=== PATIENT | female | born 1995 | race African-American/Black ===

== ENCOUNTER → 2017-03-04 | Outpatient (REF) | payer OTHER | LOC: M SFHCLERA 17:51 | PROVIDERS: ATTEND Physician Assistant | DX: J02.9 Acute pharyngitis, unspecified (principal); N89.8 Other specified noninflammatory disorders of vagina | CPT/HCPCS: 87070; 87491; 87591; G0463 ==

== ENCOUNTER 2018-01-29 20:26 | Emergency (ER) | payer OTHER, SELFPAY ==
[2018-01-29] MEDS: diphenhydrAMINE 50 MG CAP PO (21:31)
[2018-01-29] MEDS: predniSONE 20 MG TAB PO (21:31)
== END 2018-01-29 21:43 | disposition home or self-care (01) ==
LOC: M ED 20:26
DX: T78.40XA Allergy, unspecified, initial encounter (principal); L29.9 Pruritus, unspecified; L50.9 Urticaria, unspecified; X58.XXXA Exposure to other specified factors, initial encounter; Y92.89 Other specified places as the place of occurrence of the external cause
CPT/HCPCS: 99283

== ENCOUNTER → 2018-02-23 | Outpatient (CLI) | payer OTHER ==
[~2018-02-23] MED LIST: E-Z-GAS II EFFERVESCENT PACKET (SODIUM BICARB./CITRIC ACID/SIMETHICONE) As Ordered; E-Z-HD 98% w/w 340GM SUSP BTL As Ordered; E-Z-PAQUE 96% w/w SUSP 176GM BTL As Ordered
== END ==
LOC: M RAD 08:07
DX: K21.9 Gastro-esophageal reflux disease without esophagitis (principal)

== ENCOUNTER → 2018-03-03 | Outpatient (CLI) | payer OTHER | LOC: M RAD 15:07 | DX: Z32.01 Encounter for pregnancy test, result positive (principal); Z36.89 Encounter for other specified antenatal screening; Z3A.01 Less than 8 weeks gestation of pregnancy | CPT/HCPCS: 76801 ==

== ENCOUNTER → 2018-06-11 | Outpatient (CLI) | payer OTHER ==
[~2018-06-11] MED LIST changes: +BENA25CA4 PO; +CONRAY-43 43% 50ML VIAL (Q9960) As Ordered ONE; -E-Z-GAS II EFFERVESCENT PACKET (SODIUM BICARB./CITRIC ACID/SIMETHICONE) As Ordered; -E-Z-HD 98% w/w 340GM SUSP BTL As Ordered; -E-Z-PAQUE 96% w/w SUSP 176GM BTL As Ordered; +PRED20TA PO; +PROHANCE 279.3MG/ML 5ML VIAL (A9576) As Ordered ONE
--- NOTE | 2018-06-11 10:27 | REP ---
FLUOROSCOPIC GUIDED LEFT HIP ARTHROGRAM INJECTION: 06/11/2018. Clinical history: Chronic left hip pain. Evaluate the labrum. Technique: Procedure described in patient with potential diagnostic benefits of arthrogram augmented MRI which was including bleeding, infection, pain and diagnostic procedure. Informed consent was obtained. Formal time-out procedures were followed. With the patient supine, the skin was marked of the femoral neck on that left side and Chloraprep scrub used for antiseptic. Sterile field applied and then 4 ml 1% lidocaine with 25 gauge needle used for local anesthesia. Thereafter 22 gauge needle was placed through the numb area into the hip position confirmed within the joint by injection of 0.75 ml of Conray 43. Thereafter mixture of 20 ml normal saline and 0.15 ml of ProHance was injected for a total of 11 ml and seen to dilute the intra-articular contrast. She tolerated all of this well. On completion examination the patient was sent to the MR suite by chair to complete her examination. Fluoroscopy time: 0.4 minutes. Electronically Signed by Checo Michaud MD 06/11/2018 07:47 P
--- NOTE | 2018-06-11 15:13 | REP ---
MRI LEFT HIP WITHOUT AND WITH CONTRAST ARTHROGRAM: 06/11/2018. Clinical history: Left hip pain, evaluate for labral tear or other. Technique: Coronal whole pelvic T1 and STIR images with small field of view fat suppressed T2 coronal, sagittal and axial images followed by gadolinium arthrogram by myself and T1 fat suppressed coronal, sagittal and axial images. Findings: No comparison study provided. The whole pelvic marrow images show the marrow signal of L5, sacrum, iliac bones, ischia, hips and acetabuli to be unremarkable. There is no hip joint effusion. I see no trochanteric tendinobursitis. There are a few small iliac nodes bilaterally, not felt to be pathologic sized. There is evidence for a trochanteric tendinobursitis about the greater trochanter on both sides involving the gluteus medius. No definite fluid collection, but edema and increased signal in the tendon and adjacent. Pelvic, hip and buttocks musculature symmetric and grossly normal. In the gadolinium arthrogram there is no evidence of a loose body. Some undermining of the superior labrum on the arthrogram and a small paralabral sulcus on both sagittal and coronal images. Unrelated to the chief complaint, there is a T1 hyperintense and T2 STIR hypointense lesion in the pelvis I saw it as slightly hyperintense though subcutaneous fat. It measures at 10.8 x 8.4 x 5.6 cm. It has some dark signal T1 focus within that may be a calcification or blood. This has been seen in part on a first trimester OB ultrasound 03/03/2018. Impression: 1. No bone bruise, fracture, AVN or other acute bony finding. 2. Findings suggest a superior labral tear and a paralabral sulcus. 3. Bilateral mild trochanteric tendinobursitis. 4. Complex mass in the pelvis seen on pelvic ultrasound during a first trimester OB exam 03/03/2018. The differential diagnosis given the signal pattern suggests a dermoid lesion in that the lesion shows fat that suppresses signal significantly with STIR although not as much on the T1 and T2 sequences. [employer] consultation and followup are strongly recommended. Electronically Signed by Checo Michaud MD 06/11/2018 07:54 P
== END ==
LOC: M RADPRO 06:25
PROVIDERS: ATTEND General Practice
DX: M70.62 Trochanteric bursitis, left hip (principal); R19.09 Other intra-abdominal and pelvic swelling, mass and lump; M25.552 Pain in left hip
CPT/HCPCS: 27093; 73723; 77002; A9576; Q9960

== ENCOUNTER 2018-09-19 04:04 | Emergency (ER) | payer OTHER ==
[~2018-09-19] VITALS: Ht 160 cm; Wt 70.5 kg
[~2018-09-19 04:04] MED LIST changes: -CONRAY-43 43% 50ML VIAL (Q9960) As Ordered ONE; -PROHANCE 279.3MG/ML 5ML VIAL (A9576) As Ordered ONE
[2018-09-19 04:51] LABS: BASO % 0.2 % (0.0-1.0); EOS # 0.1 10^3/uL (0.0-0.50); EOS % 0.8 % (0.0-3.0); HEMATOCRIT 37.2 % (36.0-47.0); HEMOGLOBIN 12.8 g/dl (12.0-15.5); LYMPH # 2.1 10^3/uL (1.5-6.5); LYMPH % 14.7 % (24.0-44.0); MEAN CORPUSCULAR HEMOGLOBIN 24.6 pg (27.0-33.0); MEAN CORPUSCULAR HGB CONC 34.4 g/dl (32.0-36.5); MEAN CORPUSCULAR VOLUME 71.5 fl (80.0-96.0); MONO # 0.7 10^3/uL (0.0-0.8); NEUTROPHILS # 11.4 10^3/uL (1.8-7.7); PLATELET COUNT, AUTOMATED 337 10^3/uL (150-450); WHITE BLOOD COUNT 14.4 10^3/uL (4.0-10.0)
[2018-09-19 05:13] LABS: HCG, SERUM QUALITATIVE NEGATIVE (NEGATIVE)
[2018-09-19 05:20] LABS: ALBUMIN 3.6 GM/DL (3.2-5.2); ALT/SGPT 13 U/L (12-78); BILIRUBIN,DIRECT 0.2 MG/DL (0.0-0.2); BILIRUBIN,TOTAL 0.8 MG/DL (0.2-1.0); BLOOD UREA NITROGEN 8 MG/DL (7-18); CALCIUM LEVEL 8.8 MG/DL (8.5-10.1); CARBON DIOXIDE LEVEL 24 MEQ/L (21-32); CHLORIDE LEVEL 108 MEQ/L (98-107); CREATININE FOR GFR 0.67 MG/DL (0.55-1.30); GLOMERULAR FILTRATION RATE > 60.0 (>60); GLUCOSE, FASTING 102 MG/DL (70-100); LIPASE 118 U/L (73-393); POTASSIUM SERUM 3.8 MEQ/L (3.5-5.1); SODIUM LEVEL 140 MEQ/L (136-145); TOTAL PROTEIN 7.2 GM/DL (6.4-8.2)
[2018-09-19] MEDS ORDERED: KETOROLAC 30 MG/ML VIAL (J1885) IV ONE (06:45)
[2018-09-19] MEDS ORDERED: NS 1,000 ML IV ONE (06:45)
[2018-09-19] MEDS ORDERED: ISOVUE-370 76% 100ML VIAL (Q9967) As Ordered ONE (07:33)
--- NOTE | 2018-09-19 08:49 | REP ---
Clinical: Lower abdominal pain with leukocytosis. Technique: Axial contrast enhanced images from the lung bases to the pubic symphysis with coronal and sagittal re-formations using 100 ml Isovue 370 intravenous contrast material. Comparison: None. Findings: The uterus appears heterogeneous and somewhat ill-defined with surrounding pelvic fluid. The adnexa are poorly identified and there is a fluid collection in the deep right anterior pelvic space as well as a complex cystic area in the posterior cul-de-sac which measures greater than 7 cm maximal diameter. These findings are limited in further evaluation due to the lack of oral contrast to delineate the surrounding bowel as well as differentiating from the bladder. Correlation with pelvic ultrasound is recommended and findings are concerning for pelvic inflammatory disease with fluid and possible abscesses. Liver, spleen, pancreas, gallbladder, bilateral adrenal glands and kidneys are relatively normal. Scarring and possible cyst along the posterior aspect of the left kidney suggested. The enteric system is without obstruction or definite acute inflammatory process. Portions of a normal appendix are identified in the right lower quadrant. No free air. No obvious adenopathy. Abdominal aorta and vasculature appear normal. Musculoskeletal structures are intact. Impression: Detailed findings as described above suggest pelvic inflammatory disease and possible complex cystic changes to the adnexa versus abscesses. Correlation with physical examination and pelvic ultrasound may be warranted. Electronically Signed by Tenzin Moran MD 09/19/2018 08:41 A
--- NOTE | 2018-09-19 10:15 | REP ---
Clinical: Pelvic cyst. Technique: Transabdominal pelvic ultrasound followed by transvaginal examination for better evaluation of the endometrium and adnexa with color Doppler evaluation of the ovaries. Findings: Enlarged heterogeneous uterus measures 9.4 x 5.7 x 8.5 cm. Endometrial complex measures 4.9 mm thickness. Right ovary measures approximately 7.4 x 3.9 x 5.9 cm with multiple complex cystic changes - the largest of which measures 3.6 x 4.2 x 3.1 cm. Vascularity to the right ovary is identified (RI 0.54). Left ovary measures 11.7 x 9.3 x 9.8 cm with large complex cysts and possible endometrioma versus dermoid measuring 10.2 x 7.4 x 8.3 cm. Vascularity to the left ovary is identified (RI 0.67). Free fluid in the pelvis noted. Impression: 1. Complex bilateral ovarian/adnexal lesions. Differential diagnosis includes but is not limited to complex cysts, dermoid, hemorrhagic cysts, endometrioma, abscess. Clinical correlation and follow up is required. 2. Heterogeneous appearance to the uterus. Electronically Signed by Tenzin Moran MD 09/19/2018 10:06 A
[2018-09-19] MEDS ORDERED: NAPR-837 PO (10:29)
[2018-09-19 10:35] VITALS: BP 128/78
--- NOTE | 2018-09-20 06:48 | ED PDOC ---
Post-Departure Follow-Up ft kennedy ob dr frias faxed formal report of pelvic us for fu Yordan Duran MD Sep 20, 2018 06:48
== END 2018-09-19 10:37 | disposition home or self-care (01) ==
LOC: M ED 04:04
DX: N83.291 Other ovarian cyst, right side (principal); N83.292 Other ovarian cyst, left side; Z88.8 Allergy status to other drugs, medicaments and biological substances
CPT/HCPCS: 36415; 74177; 76830; 76856; 80048; 80076; 81001; 83690; 84703; 85025; 87086; 93976; 96361; 96374; 99284; J1885; Q9967

== ENCOUNTER 2018-10-29 10:42 | Inpatient (IN) | payer OTHER ==
[~2018-10-29] VITALS: Ht 160 cm; Wt 75.3 kg
[~2018-10-29 10:42] MED LIST changes: +ACET-897 PO; +ACETAMINOPHEN 650 MG SUPP PR ONE; +LIDOCAINE 1% MDV 20ML VIAL SQ PRN; +LR 1,000 ML IV ONE; +NAPR-837 PO; +cefoTEtan DISODIUM 2 GM in D5W MINI-BAG PLUS 50 ML IV ONE
[2018-10-29] MEDS ORDERED: cefoTEtan DISODIUM 2 GM in D5W MINI-BAG PLUS 50 ML IV ONE (11:30)
[2018-10-29 11:36] LABS: HEMATOCRIT 33.7 % (36.0-47.0); HEMOGLOBIN 11.7 g/dl (12.0-15.5); MEAN CORPUSCULAR HEMOGLOBIN 24.3 pg (27.0-33.0); MEAN CORPUSCULAR HGB CONC 34.7 g/dl (32.0-36.5); MEAN CORPUSCULAR VOLUME 69.9 fl (80.0-96.0); PLATELET COUNT, AUTOMATED 333 10^3/uL (150-450); RED BLOOD COUNT 4.82 10^6/uL (4.00-5.40); WHITE BLOOD COUNT 7.5 10^3/uL (4.0-10.0)
[2018-10-29 12:03] LABS: BLOOD UREA NITROGEN 10 MG/DL (7-18); CALCIUM LEVEL 8.4 MG/DL (8.5-10.1); CARBON DIOXIDE LEVEL 26 MEQ/L (21-32); CHLORIDE LEVEL 108 MEQ/L (98-107); GLOMERULAR FILTRATION RATE > 60.0 (>60); GLUCOSE, FASTING 79 MG/DL (70-100); HCG, SERUM QUANTITATIVE < 1.0 MIU/ML; POTASSIUM SERUM 3.9 MEQ/L (3.5-5.1); SODIUM LEVEL 139 MEQ/L (136-145)
[2018-10-29] MEDS ORDERED: METHYLENE BLUE 0.5% (5MG/ML) 10 ML AMP (PROVAYBLUE)(Q9968 PER 1MG) As Ordered ONE (14:20)
[2018-10-29] MEDS ORDERED: BUPIVACAINE HCL 0.5% 30 ML VIAL As Ordered ONE (14:20)
[2018-10-29] MEDS ORDERED: ACETAMINOPHEN 650 MG SUPP As Ordered ONE (14:22)
[2018-10-29] MEDS ORDERED: fentaNYL 250 MCG/5 ML INJECTION (J3010) As Ordered ONE (14:42)
[2018-10-29] MEDS ORDERED: MIDAZOLAM INJ 2 MG/2 ML VIAL (J2250) As Ordered ONE (14:42)
[2018-10-29] MEDS ORDERED: dexameTHASONE 4 MG/ML 1ML VIAL (J1100) As Ordered ONE (14:42)
[2018-10-29] MEDS ORDERED: SUGAMMADEX SODIUM 500 MG/5 ML VIAL (BRIDION) As Ordered ONE (14:42)
[2018-10-29] MEDS ORDERED: fentaNYL 100 MCG/2 ML INJECTION (J3010) As Ordered ONE ×2 (14:42→17:54)
[2018-10-29] MEDS ORDERED: KETOROLAC 60 MG/2 ML VIAL (J1885) As Ordered ONE (14:42)
[2018-10-29] MEDS ORDERED: ONDANSETRON 4MG/2ML VIAL (J2405) As Ordered ONE ×2 (14:42→17:54)
[2018-10-29] MEDS ORDERED: ROCURONIUM BROMIDE 50 MG/5 ML VIAL As Ordered ONE ×2 (14:42→15:41)
[2018-10-29] MEDS ORDERED: PROPOFOL 200 MG/20 ML VIAL As Ordered ONE (14:42)
[2018-10-29] MEDS ORDERED: METOCLOPRAMIDE INJ 10MG/2ML VIAL (J2765) As Ordered ONE (14:42)
[2018-10-29] MEDS ORDERED: LIDOCAINE 2% INJ 100 MG/5 ML SDV (FOR ANES.) As Ordered ONE (14:42)
[2018-10-29] MEDS ORDERED: LABETALOL HCL 100 MG/20 ML VIAL As Ordered ONE (15:38)
[2018-10-29] MEDS ORDERED: ceFAZolin 2 GM/D5W 50 ML IV BAG (J0690 PER 500MG) As Ordered ONE (15:48)
[2018-10-29] MEDS ORDERED: MEPERIDINE INJ 25 MG/ML VIAL (J2175) As Ordered ONE (17:54)
[2018-10-29] MEDS ORDERED: PERCOCET 5MG/325MG TAB As Ordered ONE (17:54)
[2018-10-29] MEDS: PERCOCET 5MG/325MG TAB PO PRN ×2 (18:00→18:30)
[2018-10-29] MEDS: fentaNYL 100 MCG/2 ML INJECTION (J3010) IV PRN ×4 (18:00→18:15)
[2018-10-29] MEDS ORDERED: LR 1,000 ML IV SCH ×2 (18:15→19:00)
[2018-10-29] MEDS ORDERED: ONDANSETRON 4MG/2ML VIAL (J2405) IV PRN ×2 (18:15→18:45)
[2018-10-29] MEDS ORDERED: ACETAMINOPH W/CODEINE #3 TAB UD PO PRN (18:45)
[2018-10-29] MEDS ORDERED: zolPIDEM TARTRATE 5 MG TAB PO PRN (18:45)
[2018-10-29] MEDS ORDERED: PERCOCET 5MG/325MG TAB PO PRN (18:45)
[2018-10-29] MEDS: MEPERIDINE INJ 25 MG/ML VIAL (J2175) IV PRN ×2 (19:00→19:05)
[2018-10-29] MEDS: MORPHINE 10 MG/ML 1ML VIAL (J2270) IV PRN (20:07)
[2018-10-29 20:12] VITALS: BP 112/55
[2018-10-29 20:45] VITALS: BP 113/60
[2018-10-29 21:15] VITALS: BP 113/63
[2018-10-29 22:15] VITALS: BP 108/59
[2018-10-29 23:15] VITALS: BP 112/62
[2018-10-30 00:15] VITALS: BP 114/60
[2018-10-30 00:18] LABS: HEMATOCRIT 30.5 % (36.0-47.0); HEMOGLOBIN 10.6 g/dl (12.0-15.5); MEAN CORPUSCULAR HEMOGLOBIN 24.9 pg (27.0-33.0); MEAN CORPUSCULAR HGB CONC 34.8 g/dl (32.0-36.5); MEAN CORPUSCULAR VOLUME 71.8 fl (80.0-96.0); PLATELET COUNT, AUTOMATED 291 10^3/uL (150-450); RED BLOOD COUNT 4.25 10^6/uL (4.00-5.40); WHITE BLOOD COUNT 11.8 10^3/uL (4.0-10.0)
[2018-10-30] MEDS: PERCOCET 5MG/325MG TAB PO PRN ×3 (00:38→20:28)
[2018-10-30] MEDS ORDERED: NS 1,000 ML IV SCH (03:00)
[2018-10-30 04:00] VITALS: BP 119/59
[2018-10-30 08:00] VITALS: BP 119/55
--- NOTE | 2018-10-30 10:57 | IPN ---
DATE: 10/30/2018 This lady had a laparotomy for stage IV endometriosis with a huge endometrioma of the left ovary, and she had extensive inflammatory effect from the endometriosis that included her left tube, her left ovary, which radiated from the space of Retzius suprapubically to the sacral promontory and laterally to both ischial spines. On her first postoperative day, she has passed gas and voided. Her abdomen is soft. Incision is clean and dry. Four quadrant bowel sounds are noted. Her chest is clear. Her admitting hemoglobin was 11.7, hematocrit 33.7 and platelets were 333. Her post operative day one hemoglobin 10.6, hematocrit 30.5 and platelets were 291. Her vital signs this morning: Her blood pressure is 119/59, respirations 16, pulse 68, temperature 97.7. She had a second dose of prophylactic antibiotics because of the acute inflammatory effect from her endometriosis. Her total intake was 3150 mL, of which she had a significant amount of IV fluids, and her urinary output was 800 mL to date. The rest of the examination is unremarkable. She is normocephalic, atraumatic. Neck: Full range of motion. Pupils equal and reactive to light. Distal pulses symmetric. No evidence of DVT, PE or superficial phlebitis. Chest is clear with no wheezes or rhonchi. No complaints of arthralgia, myalgia. No joint pain. We reviewed briefly the operative note and the operative procedure. We reviewed the options regard to getting right away with basal body temperature, Depo Lupron for 3 months or in vitro if needed. We will review these at the 6-week checkup. She has a 2-week incision check. Medications were dispensed prior to discharge. We will review with her tomorrow prior to discharge her discharge instructions.
[2018-10-30 12:00] VITALS: BP 113/55
[2018-10-30] MEDS: MORPHINE 10 MG/ML 1ML VIAL (J2270) IV PRN ×2 (12:05→18:18)
[2018-10-30 16:00] VITALS: BP 109/53
[2018-10-30 20:00] VITALS: BP 121/60
[2018-10-31] VITALS: BP 113/64
[2018-10-31 04:00] VITALS: BP 120/64
[2018-10-31] MEDS: PERCOCET 5MG/325MG TAB PO PRN (04:10)
[2018-10-31] MEDS ORDERED: PERCOCET PO (07:32)
[2018-10-31] MEDS ORDERED: ACET1TAB16 PO (07:32)
[2018-10-31 08:00] VITALS: BP 122/57
[2018-10-31 09:07] VITALS: BP 122/57
--- NOTE | 2018-10-31 23:57 | DSES ---
DATE OF ADMISSION: 10/29/2018 DATE OF DISCHARGE: 10/31/2018 This lady had a laparotomy for stage IV endometriosis. This is her second postoperative day. On examination, she is feeling well. No issues. All questions were answered. Her blood pressure on discharge is 120/64, respirations are 18, pulse 93 and temperature 97.6. Her admitting hemoglobin was 11.7, hematocrit 33.7, platelets were 333. Discharge hemoglobin 10.6, hematocrit 30.5 and platelets are 291. The rest of the examination unremarkable. She is normocephalic, atraumatic. Neck: Full range of motion. Pupils equal and reactive to light. Distal pulses symmetric. No evidence of deep vein thrombosis (DVT), pulmonary emboli (PE) or superficial phlebitis. Chest is clear bilaterally at the bases. No wheezes or rhonchi. No costovertebral angle (CVA) tenderness. Abdomen is soft. Four quadrant bowel sounds are noted. Incision is clean and dry. No rashes, lesions or pruritus. No arthralgia, myalgia. No complaint of joint pain. No complaint of cough, wheeze, shortness of breath or dyspnea on exertion. No nausea, vomiting, diarrhea or constipation. No incontinence, urgency or frequency In summary, we have a patient who had a laparotomy for stage IV endometriosis. Finalize treatment will be done at 6 weeks at her checkup. She has a 2-week incision check with Monika CONNELL. Medications were dispensed at discharge. All questions were answered.
--- NOTE | 2018-11-01 10:11 | RO ---
DATE OF PROCEDURE: 10/29/2018 SURGEON: Go Sifuentes MD TAX APPRAISER: Tolu Fabian DO, for extraction, retraction, visualization. PREOPERATIVE DIAGNOSIS: Bilateral adnexal masses. POSTOPERATIVE DIAGNOSES: Left ovarian endometrioma, left inflammatory tube, obliterated posterior cul-de-sac, inability to find the right tube or ovary, inability to negotiate the cervix or the uterus. OPERATION PERFORMED: Laparotomy, excision of left ovarian endometrioma, excision of cystic structure in the left ovary, attempted chromotubation unsuccessful, attempted sounding of the uterus was unsuccessful, stage IV endometriosis, multinodular fibroid uterus. DESCRIPTION OF PROCEDURE: Under adequate anesthesia, prepped and draped in the semilithotomy position, a Silva catheter in the bladder draining clear urine, acetaminophen suppository 1300 mg per rectum, sequentials in place, antibiotics prophylactically prescribed, time-out performed. A weighted speculum vagina. The vulva appeared to be normal. The vagina, posterior wall was bulging because of the large mass in the pelvis. The posterior wall protruded out, which pushed the cervix high anteriorly and off to the left. We were eventually able to find the os. However, we were not able to negotiate a sound into the os, and we were unable to even negotiate the fine catheter for chromotubation into the os. The uterus was somewhere off to the left obstructed by this large anterior pelvic mass. Reprepping and draping, a Pfannenstiel incision was made two fingerbreadths above the symphysis pubis passing through the abdominal layers securing hemostasis. When we opened the peritoneal cavity, there was a lot of chocolatey brown and serosanguineous fluid which we sent off to pathology under separate cover, and we were greeted by this large smooth white mass, which initially we were unable to tell if it was right or left side but did eventually identify it as the left ovary and a large tense endometrioma with a very thickened capsule. We initially tried to extend the fascia and the peritoneum in order to extract this mass, but we were unable to do so; and, therefore, we had to cut the rectus muscles in order to be able to help extract this mass. Still, we were unable to extract the mass. We extended the skin incisions, and we were still unable to extract the mass because it was fixed. We, therefore, went ahead and aspirated with a large bore needle. Approximately 60 mL of chocolatey brown material which we assumed was endometriosis, and this helped to deflate the large inflammatory mass in order for us to evaluate the mass and potentially help to remove it out of the abdomen, we then went ahead and opened up a little bit more the incision on the mass, and we were able to aspirate 360 mL of chocolatey brown material which gave us a total of 420 mL of chocolatey brown material. Once the mass was deflated, we were able to place the [place] retractor in its appropriate position, and then we were able to extricate the mass out of the abdomen, and we then identified it as the left ovary. With the left tube draped over it, we had a nice fimbriated end, but it was significantly inflamed because of the inflammatory process of the endometriosis. We were able to somewhat identify the round ligament on the left side but we are not for certain. The mass itself went from the space of Retzius below the symphysis pubis, above the umbilicus, and fixed to the sacral promontory. Laterally, it went from one ischial spine to the other ischial spine in breadth and in depth. We were able to elevate this inflammatory left ovarian endometrioma, but it was still fixed posteriorly in on the left side. By blunt digital dissection, we able to elevated up out of the abdomen. Once we deflated it, we were able to visualize the uterus which was deviated off to the right. It had multinodular fibroids in it on the outside externally, some calcified, some not calcified, some vascular, some not vascular. The largest ones were approximately about 3-4 cm around and seemed to be calcified. Surprisingly, the anterior aspect of the bladder was clear and free of endometriosis. We then paid our attention to the right side. We were never able to identify a right ovary or a right tube. All there were, were multiple pockets of endometriosis which we broke down and progressively removed the chocolatey material. We were then able to irrigate vigorously in order to remove any residual spillage of endometriosis. We then turned our attention to the left ovarian endometrioma and made an incision and continued the incision for approximately 5 cm. We were then able to identify the sac for the endometriosis, and we peeled out the sac, but there was definitely some hilar tissue and some ovarian tissue left. We removed the sac which was sent off to pathology under separate cover. We then were able to close that ovary with interrupted 3-[address] needle. We put some stitches in the deep part of the ovary in order to close off the space and then with baseball stitch fashion closed the 5-cm incisional site over the top of that ovary. We irrigated it out again. We irrigated posteriorly. Concern was that there was endometriosis engaged into the rectal area; and, therefore, a rectal examination was performed, and we could not feel any perforations or any evidence to suggest the endometriosis was close to the rectal area. With instrument and pad count correct, we then finally irrigated again, making sure there was no evidence of active bleeding. We put some Juan in the right side where the pockets of endometriosis were just broken down and removed. We then went ahead and wrapped the left ovary, quite inflamed, in Surgicel; and with that done, with instrument and pad count correct, we then went ahead and closed the abdomen, running stitch for the peritoneum, same for the fascia, interrupted for subcutaneous, Marcaine 0.25% with subcuticular stitch and skin tapes. This lady's outlook for at the immediate present time is grim, bearing in fact that we could not get in and negotiate the cervix or the uterus, possibly related to the pressure from the endometriosis and/or the fibroid uterus. Our plan of management is to allow all the areas to heal, allowing the inflammatory process from the major part of the endometriosis to resolve. Once that is done, the patient has several options. One is to attempt on her own with a basal body temperature thermometer, a scheduled interval of probably 3-6 months. Failing to get , the patient may opt to do Depo Lupron for 3 months to try to resolve the issue, as we are still not able to identify if the left tube is patent or even if there is a right tube anywhere present. A third option which would probably be the better option would be to do in vitro, if and assuming that the physicians can get into the uterus to implant the embryo. With instrument and pad count correct, the Silva catheter was left in. The patient was then given a subsequent dose of antibiotics because the total operative procedure was 3-1/2 hours; and, therefore, we did a second dose of antibiotics; and the patient was then sent to recovery in good condition.
== END 2018-10-31 09:15 | disposition home or self-care (01) | DRG 743 ==
LOC: M OR 10:42 → M PED 19:40
PROVIDERS: ADMIT Obstetrics & Gynecology; ATTEND Obstetrics & Gynecology
PROC: 0UB10ZX Excision of Left Ovary, Open Approach, Diagnostic (ICD-10-PCS; principal; 2018-10-29 12:45)
DX: N80.1 Endometriosis of ovary (principal); D25.9 Leiomyoma of uterus, unspecified

== ENCOUNTER 2018-11-04 11:46 | Emergency (ER) | payer OTHER ==
[~2018-11-04] VITALS: Ht 160 cm; Wt 75.0 kg
[~2018-11-04 11:46] MED LIST changes: +ACET1TAB16 PO; -ACETAMINOPHEN 650 MG SUPP PR ONE; -LIDOCAINE 1% MDV 20ML VIAL SQ PRN; -LR 1,000 ML IV ONE; +PERCOCET PO; -cefoTEtan DISODIUM 2 GM in D5W MINI-BAG PLUS 50 ML IV ONE
[2018-11-04] MEDS ORDERED: IBUP80TA (11:53)
[2018-11-04] MEDS ORDERED: ACET1TAB55 (11:53)
[2018-11-04] MEDS ORDERED: DOCU100C16 (11:53)
--- NOTE | 2018-11-04 15:12 | REP ---
PELVIC ULTRASOUND: Real-time sonographic evaluation of the pelvis performed utilizing transabdominal and endovaginal technique. Bladder measures 6.6 x 7.3 x 6.9 cm. Uterus measures 7.8 x 4.5 x 5.1 cm. Endometrial thickness is 6 mm. Posterior left uterine fibroid measures 2.3 x 2.0 x 2.4 cm and a posterior right uterine fibroid measures 2.1 x 2.4 x 1.9 cm. When compared to the prior study of 09/19/2018 the complex cystic structure in the right ovary has increased in size measuring 6.5 x 4.1 x 6.6 cm. There is internal hyperechoic debris. The right ovary itself measures 9.3 x 4.3 x 8.2 cm inclusive of this complex cyst. Since the prior exam the patient has had removal of the complex left ovarian cyst seen on the prior ultrasound. The left ovary measures 3.3 x 2.7 x 2.4 cm. There is no evidence of ovarian torsion bilaterally, RI right ovary 0.45 and left ovary 0.41. No significant free fluid is seen. IMPRESSION: Increased size of complex right ovarian cyst with hyperechoic debris and a focal echogenic component meauring 1.6 cm in diameter. No torsion and no significant free fluid. Electronically Signed by Vinayak Adam MD 11/07/2018 07:17 P
[2018-11-04 15:44] VITALS: BP 118/66
== END 2018-11-04 15:47 | disposition home or self-care (01) ==
LOC: M ED 11:46
DX: N83.201 Unspecified ovarian cyst, right side (principal); J02.9 Acute pharyngitis, unspecified; Z88.8 Allergy status to other drugs, medicaments and biological substances

== ENCOUNTER 2018-12-02 05:58 | Emergency (ER) | payer OTHER ==
[~2018-12-02] VITALS: Ht 160 cm; Wt 75.0 kg
[~2018-12-02 05:58] MED LIST changes: +ACET1TAB55; +DOCU100C16; +IBUP80TA
[2018-12-02 07:37] LABS: HEMATOCRIT 32.2 % (36.0-47.0); HEMOGLOBIN 11.1 g/dl (12.0-15.5); RED BLOOD COUNT 4.69 10^6/uL (4.00-5.40); WHITE BLOOD COUNT 10.7 10^3/uL (4.0-10.0)
[2018-12-02 07:38] LABS: BASO % 0.3 % (0.0-1.0); EOS # 0.3 10^3/uL (0.0-0.50); EOS % 3.2 % (0.0-3.0); LYMPH # 1.4 10^3/uL (1.5-6.5); LYMPH % 13.3 % (24.0-44.0); MEAN CORPUSCULAR HEMOGLOBIN 23.7 pg (27.0-33.0); MEAN CORPUSCULAR HGB CONC 34.5 g/dl (32.0-36.5); MEAN CORPUSCULAR VOLUME 68.7 fl (80.0-96.0); MONO # 0.6 10^3/uL (0.0-0.8); MONO % 5.9 % (0.0-5.0); NEUTROPHILS # 8.2 10^3/uL (1.8-7.7); NEUTROPHILS % 77.1 % (36.0-66.0); PLATELET COUNT, AUTOMATED 279 10^3/uL (150-450)
[2018-12-02 08:21] LABS: BLOOD UREA NITROGEN 11 MG/DL (7-18); CREATININE FOR GFR 0.73 MG/DL (0.55-1.30); GLOMERULAR FILTRATION RATE > 60.0 (>60); GLUCOSE, FASTING 88 MG/DL (70-100); POTASSIUM SERUM 3.6 MEQ/L (3.5-5.1); SODIUM LEVEL 142 MEQ/L (136-145)
[2018-12-02 08:22] LABS: CARBON DIOXIDE LEVEL 25 MEQ/L (21-32); CHLORIDE LEVEL 110 MEQ/L (98-107)
[2018-12-02 08:23] LABS: ALBUMIN 3.3 GM/DL (3.2-5.2); ALT/SGPT 12 U/L (12-78); BILIRUBIN,DIRECT 0.1 MG/DL (0.0-0.2); BILIRUBIN,TOTAL 0.3 MG/DL (0.2-1.0); CALCIUM LEVEL 7.9 MG/DL (8.5-10.1); LIPASE 142 U/L (73-393); TOTAL PROTEIN 6.4 GM/DL (6.4-8.2)
--- NOTE | 2018-12-02 09:40 | REP ---
Pelvic sonography: History: Pelvic cramping, pain. History of ovarian cysts. Comparison pelvic sonography November 04, 2018 showed a complex right ovarian cyst. Sonographic findings: Transabdominal and transvaginal scanning are performed. Uterine dimensions are normal at 7.8 x 5.1 x 5.8 cm. Atrial echo 0.7 cm thick and centrally placed. The left ovary is normal measuring 2.9 x 2.7 x 2.3 cm. Its Doppler flow is normal, resistive index 0.69. There is complex free fluid throughout the pelvis. There are hypoechoic myometrial nodules consistent with fibroids measuring 2.7 and 1.5 cm in greatest diameter respectively. The right ovary is enlarged measuring 8.1 x 4.6 x 8.7 cm. Resistive index by Doppler to the right ovary is normal at 0.60. There is a 6.6 x 4.0 x 5.2 cm complex cystic lesion in the right adnexa containing a mixed echogenic interior texture. Impression: Complex free fluid persists in the pelvis cul-de-sac region. There is a 6.6 cm persistent complex cystic lesion in the right ovary. Endometrioma/endometriosis versus neoplastic cyst versus other cystic adnexal lesions. There appear to be two small uterine fibroids. Electronically Signed by Pravin Salmon MD 12/02/2018 10:42 A
[2018-12-02] MEDS ORDERED: IBUPROFEN 800 MG TAB PO ONE (10:00)
[2018-12-02 11:06] VITALS: BP 140/75
--- NOTE | 2018-12-05 20:33 | ED PDOC ---
Post-Departure Follow-Up ft kennedy neri, dr sam faxed formal report of pelvic us for fu randeeg Yordan Goins MD Dec 05, 2018 20:33
== END 2018-12-02 11:12 | disposition home or self-care (01) ==
LOC: M ED 05:58
DX: N93.8 Other specified abnormal uterine and vaginal bleeding (principal); N83.299 Other ovarian cyst, unspecified side; N80.9 Endometriosis, unspecified; N94.6 Dysmenorrhea, unspecified; Z86.19 Personal history of other infectious and parasitic diseases; Z87.42 Personal history of other diseases of the female genital tract; Z88.8 Allergy status to other drugs, medicaments and biological substances

== ENCOUNTER 2018-12-09 14:27 | Emergency (ER) | payer OTHER ==
[~2018-12-09] VITALS: Ht 160 cm; Wt 79.0 kg
[2018-12-09] MEDS ORDERED: KETOROLAC 60 MG/2 ML VIAL (J1885) IM ONE (17:15)
[2018-12-09 17:36] LABS: BASO # 0.1 10^3/uL (0.0-0.2); BASO % 0.7 % (0.0-1.0); EOS # 0.3 10^3/uL (0.0-0.50); EOS % 3.9 % (0.0-3.0); HEMATOCRIT 34.5 % (36.0-47.0); HEMOGLOBIN 11.5 g/dl (12.0-15.5); LYMPH # 3.7 10^3/uL (1.5-6.5); LYMPH % 42.4 % (24.0-44.0); MEAN CORPUSCULAR HEMOGLOBIN 23.4 pg (27.0-33.0); MEAN CORPUSCULAR HGB CONC 33.3 g/dl (32.0-36.5); MEAN CORPUSCULAR VOLUME 70.3 fl (80.0-96.0); MONO # 0.5 10^3/uL (0.0-0.8); MONO % 5.9 % (0.0-5.0); NEUTROPHILS # 4.1 10^3/uL (1.8-7.7); NEUTROPHILS % 46.9 % (36.0-66.0); PLATELET COUNT, AUTOMATED 388 10^3/uL (150-450); RED BLOOD COUNT 4.91 10^6/uL (4.00-5.40); WHITE BLOOD COUNT 8.7 10^3/uL (4.0-10.0)
[2018-12-09] MEDS ORDERED: KETO10TAB PO (18:29)
[2018-12-09 18:37] VITALS: BP 119/70
--- NOTE | 2018-12-09 19:05 | REPVR ---
EXAM: US EXAM DATE/TIME: 12/09/2018 5:56 PM CLINICAL HISTORY: 23 years old, female; Pelvic pain; Additional info: Pelvic pain, HX cysts and endometriosis, open surgery 11/04 TECHNIQUE: Imaging protocol: Real-time transvaginal ultrasound of the pelvis COMPARISON: US PELVIC NON-OB COMPLETE 12/02/2018 8:47 AM FINDINGS: Uterus: Uterus measures 7.1 x 4.5 x 4.6 cm. Solid hypoechoic foci in the uterus measured 2.5 x 2.5 x 2.1 cm and 1.2 x 0.9 x 1.3 cm likely representing fibroids. Endometrial echocomplex measures 3.8 mm. Right adnexa: Right ovary measures 7.3 x 5 x 5.4 cm. Large cyst in the right ovary measures 6 x 4.4 x 5.6 cm filled with fine low level internal echoes consistent with an endometrioma. Smaller simple cyst demonstrated in the right ovary as well. Resistive index 0.47 Left adnexa: Left ovary measures 3.3 x 1.9 x 2.5 cm. Resistive index 0.42 IMPRESSION: 1. Large cyst in the right ovary measures 6 x 4.4 x 5.6 cm filled with fine low level internal echoes consistent with an endometrioma. 2. Uterine fibroids. Electronically signed by: Reynaldo Doll On 12/09/2018 19:05:27 PM
--- NOTE | 2018-12-10 07:28 | ED PDOC ---
Post-Departure Follow-Up dr sam ft kennedy ob faxed formal report of pelvic us for fu randeeg Yordan Goins MD Dec 10, 2018 07:28
== END 2018-12-09 18:39 | disposition home or self-care (01) ==
LOC: M ED 14:27
DX: N80.9 Endometriosis, unspecified (principal); N83.201 Unspecified ovarian cyst, right side; Z88.8 Allergy status to other drugs, medicaments and biological substances
CPT/HCPCS: 36415; 76830; 76856; 76857; 81001; 84702; 85025; 93976; 96372; 99283; J1885

== ENCOUNTER 2019-01-12 11:44 | Emergency (ER) | payer OTHER ==
[~2019-01-12] VITALS: Ht 160 cm; Wt 78.1 kg
[~2019-01-12 11:44] MED LIST changes: +KETO10TAB PO
--- NOTE | 2019-01-12 14:02 | REP ---
Head CT without contrast: History: Papilledema. Comparison study: No comparison study. CT findings: Bone window settings demonstrate an intact bony calvarium. There is no evidence of skull fracture or incidental bony calvarial lesion. The visualized paranasal sinuses appear clear. No intraorbital abnormality is seen. On soft tissue window setting images; the lateral, third, and fourth ventricles are normal in size and position. Adam-white differentiation pattern is normal above and below the tentorium. There are is no evidence of intracranial hemorrhage. No mass, edema, infarction, or midline shift is seen. No extra-axial fluid collection is appreciated. Impression: Negative noncontrast head CT. Electronically Signed by Pravin Salmon MD 01/12/2019 01:53 P
[2019-01-12 14:21] VITALS: BP 119/75
== END 2019-01-12 14:35 | disposition home or self-care (01) ==
LOC: M ED 11:44
DX: H47.11 Papilledema associated with increased intracranial pressure (principal); Z88.6 Allergy status to analgesic agent

== ENCOUNTER 2019-03-07 05:41 | Emergency (ER) | payer OTHER ==
[~2019-03-07] VITALS: Ht 160 cm; Wt 77.3 kg
[2019-03-07] MEDS ORDERED: ACET-683 PO (05:46)
[2019-03-07 07:08] LABS: BASO # 0.1 10^3/uL (0.0-0.2); BASO % 0.7 % (0.0-1.0); EOS # 0.4 10^3/uL (0.0-0.5); HEMATOCRIT 39.2 % (36.0-47.0); HEMOGLOBIN 12.9 g/dl (12.0-15.5); LYMPH % 22.9 % (24.0-44.0); MEAN CORPUSCULAR HEMOGLOBIN 22.5 pg (27.0-33.0); MEAN CORPUSCULAR HGB CONC 32.9 g/dl (32.0-36.5); MEAN CORPUSCULAR VOLUME 68.4 fl (80.0-96.0); MONO # 0.5 10^3/uL (0.0-0.8); MONO % 6.1 % (0.0-5.0); NEUTROPHILS # 5.8 10^3/uL (1.5-8.5); PLATELET COUNT, AUTOMATED 245 10^3/uL (150-450); RED BLOOD COUNT 5.73 10^6/uL (4.00-5.40); WHITE BLOOD COUNT 8.8 10^3/uL (4.0-10.0)
[2019-03-07 07:34] LABS: ALBUMIN 3.4 GM/DL (3.2-5.2); ALT/SGPT 17 U/L (12-78); BILIRUBIN,DIRECT < 0.1 MG/DL (0.0-0.2); BILIRUBIN,TOTAL 0.3 MG/DL (0.2-1.0); BLOOD UREA NITROGEN 10 MG/DL (7-18); CALCIUM LEVEL 8.8 MG/DL (8.5-10.1); CARBON DIOXIDE LEVEL 24 MEQ/L (21-32); CHLORIDE LEVEL 111 MEQ/L (98-107); CREATININE FOR GFR 0.76 MG/DL (0.55-1.30); GLOMERULAR FILTRATION RATE > 60.0 (>60); GLUCOSE, FASTING 96 MG/DL (70-100); POTASSIUM SERUM 4.2 MEQ/L (3.5-5.1); SODIUM LEVEL 140 MEQ/L (136-145); TOTAL PROTEIN 6.9 GM/DL (6.4-8.2)
[2019-03-07] MEDS ORDERED: KETOROLAC 30 MG/ML VIAL (J1885) IM ONE (07:45)
--- NOTE | 2019-03-07 08:04 | REP ---
Pelvic sonography: History: Pelvic pain. Endometriosis. Findings: Transabdominal and transvaginal scanning are performed. Uterine dimensions are normal at 7.2 x 4.7 x 5.6 cm. Endometrial echo 0.4 cm thick. Uterus is anteverted. Visualized bladder lee are smooth. There is minimal fluid in the right side of the cul-de-sac. There are two hypoechoic areas in the uterus consistent with fibroids. These include a 1.9 cm hypoechoic area on the left and a 1.8 cm hypoechoic area on the right. Blood flow is seen to both ovaries. The left ovary appears normal measuring 3.2 x 1.1 x 2.3 cm. Resistive index is 0.51 by Doppler. The right ovary is enlarged measuring 9.2 x 5.4 x 6.8 cm. Its Doppler flow resistive index is 0.55. There is complex enlargement of the right ovary with two anechoic simple appearing cysts and two hypoechoic complex cystic areas. The complex hypoechoic areas measure 6.5 x 4.7 x 5.6 cm and 3.1 x 1.2 x 2.1 cm. The largest anechoic cystic component measures 4.1 x 2.0 x 1.7 cm. Impression: Complex multicystic enlargement of the right ovary, 9.2 x 6.8 x 5.4 cm in overall dimension. There is Doppler flow to both ovaries. Findings are nonspecific. Similar findings were described on the previous study December 09, 2018. Hypoechoic cystic components may be endometriomas. Ovarian torsion is a less likely possibility. The right ovary is a little larger. There are two small uterine fibroids. Normal left ovary. Electronically Signed by Pravin Salmon MD 03/07/2019 08:40 A
--- NOTE | 2019-03-07 08:15 | REP ---
KUB: Single view. History: History of constipation. Abdomen and pelvic pain. Findings: Bowel gas pattern is normal. Flank stripes are intact. There is no evidence of mass, organomegaly, or pathologic calcification. Psoas margins are partially obscured by bowel gas. No bony abnormality. Impression: Negative KUB. Electronically Signed by Pravin Salmon MD 03/07/2019 08:06 A
[2019-03-07 10:07] LABS: CHLAMYDIA DNA AMPLIFICATION NEGATIVE (NEGATIVE); GC DNA AMPLIFICATION NEGATIVE (NEGATIVE)
[2019-03-07] MEDS ORDERED: KETO10TAB PO (10:50)
[2019-03-07 10:54] VITALS: BP 114/77
--- NOTE | 2019-03-09 14:17 | ED PDOC ---
Post-Departure Follow-Up ft kennedy ob faxed fomral report of pelvic us for fu randeeg Yordan Goins MD Mar 09, 2019 14:17
== END 2019-03-07 10:56 | disposition home or self-care (01) ==
LOC: M ED 05:41
DX: D25.9 Leiomyoma of uterus, unspecified (principal); N93.9 Abnormal uterine and vaginal bleeding, unspecified; N83.201 Unspecified ovarian cyst, right side; N80.9 Endometriosis, unspecified; Z88.6 Allergy status to analgesic agent
CPT/HCPCS: 36415; 74018; 76830; 76856; 80048; 80076; 81001; 84702; 85025; 87210; 87661; 93976; 96372; 99284; J1885

== ENCOUNTER 2019-04-22 11:02 | Emergency (ER) | payer OTHER ==
[~2019-04-22] VITALS: Ht 160 cm; Wt 79.4 kg
[~2019-04-22 11:02] MED LIST changes: +ACET-683 PO
[2019-04-22] MEDS ORDERED: NUVAMIS2 (11:06)
[2019-04-22] MEDS ORDERED: AMOX500C PO (13:24)
[2019-04-22 13:30] VITALS: BP 131/69
[2019-04-22] MEDS ORDERED: AMOXICILLIN 500 MG CAP PO ONE (13:30)
[2019-04-23] MEDS ORDERED: REGL10TA6 PO (02:34)
[2019-04-23] MEDS ORDERED: KETO10TAB PO (02:34)
[2019-04-23] MEDS ORDERED: BENA25CA4 PO (02:34)
== END 2019-04-22 13:31 | disposition home or self-care (01) ==
LOC: M ED 11:02
DX: J02.0 Streptococcal pharyngitis (principal)

== ENCOUNTER 2019-04-22 22:53 | Emergency (ER) | payer OTHER ==
[~2019-04-22] VITALS: Ht 160 cm; Wt 74.1 kg
[~2019-04-22 22:53] MED LIST changes: +AMOX500C PO; +NUVAMIS2
[2019-04-23 00:20] LABS: INFLUENZA A AMPLIFICATION NEGATIVE (NEGATIVE); INFLUENZA B AMPLIFICATION NEGATIVE (NEGATIVE)
[2019-04-23] MEDS ORDERED: diphenhydrAMINE INJ 50MG/ML VIAL (J1200) IV STA (01:18)
[2019-04-23] MEDS ORDERED: METOCLOPRAMIDE INJ 10MG/2ML VIAL (J2765) IV ONE (01:30)
[2019-04-23] MEDS ORDERED: NS 1,000 ML IV ONE (01:30)
[2019-04-23] MEDS ORDERED: KETOROLAC 30 MG/ML VIAL (J1885) IV ONE (01:30)
[2019-04-23 01:56] LABS: BASO # 0.1 10^3/uL (0.0-0.2); BASO % 0.3 % (0.0-1.0); EOS % 0.1 % (0.0-3.0); HEMATOCRIT 40.5 % (36.0-47.0); HEMOGLOBIN 13.8 g/dl (12.0-15.5); LYMPH # 1.6 10^3/uL (1.5-5.0); LYMPH % 8.2 % (24.0-44.0); MEAN CORPUSCULAR HEMOGLOBIN 23.9 pg (27.0-33.0); MEAN CORPUSCULAR HGB CONC 34.1 g/dl (32.0-36.5); MEAN CORPUSCULAR VOLUME 70.2 fl (80.0-96.0); MONO # 1.1 10^3/uL (0.0-0.8); MONO % 5.6 % (0.0-5.0); NEUTROPHILS # 16.8 10^3/uL (1.5-8.5); NEUTROPHILS % 85.3 % (36.0-66.0); PLATELET COUNT, AUTOMATED 310 10^3/uL (150-450); RED BLOOD COUNT 5.77 10^6/uL (4.00-5.40); WHITE BLOOD COUNT 19.7 10^3/uL (4.0-10.0)
[2019-04-23 02:15] LABS: ERYTHROCYTE SEDIMENTATION RATE 14 mm/hr (0-20)
--- NOTE | 2019-04-23 02:18 | REPVR ---
PROCEDURE INFORMATION: Exam: CT Head Without Contrast Exam date and time: 04/23/19 (1:23am) Age: 23 years old Clinical indication: Headache. Possible ICH. TECHNIQUE: Imaging protocol: Computed tomography of the head without contrast. Radiation optimization: All CT scans at this facility use at least one of these dose optimization techniques: automated exposure control; mA and/or kV adjustment per patient size (includes targeted exams where dose is matched to clinical indication); or iterative reconstruction. COMPARISON: CT HEAD of 01/12/19 FINDINGS: Brain: Unremarkable. No acute hemorrhage. Unremarkable white matter. No mass effect. Ventricles: Normal. No ventriculomegaly. Bones/joints: Unremarkable. No acute fracture. Sinuses: Visualized sinuses are unremarkable. No air-fluid levels. Mastoid air cells: Visualized mastoid air cells are well aerated. Soft tissues: Unremarkable. IMPRESSION: No acute intracranial pathology is appreciated. Electronically signed by: Lucia Summers On 04/23/2019 02:17:47 AM
[2019-04-23 02:20] VITALS: BP 142/84
[2019-04-23] MEDS ORDERED: REGL10TA6 PO (02:34)
[2019-04-23] MEDS ORDERED: KETO10TAB PO (02:34)
[2019-04-23] MEDS ORDERED: BENA25CA4 PO (02:34)
[2019-04-24] MEDS ORDERED: BANO25CA (19:56)
[2019-04-24] MEDS ORDERED: METO10TA2 (19:56)
== END 2019-04-23 02:57 | disposition home or self-care (01) ==
LOC: M ED 22:53
DX: J02.0 Streptococcal pharyngitis (principal); G43.909 Migraine, unspecified, not intractable, without status migrainosus; D72.829 Elevated white blood cell count, unspecified; M54.9 Dorsalgia, unspecified; Z88.6 Allergy status to analgesic agent; Z79.3 Long term (current) use of hormonal contraceptives; Z79.899 Other long term (current) drug therapy
CPT/HCPCS: 70450; 80047; 85025; 85652; 86140; 87502; 87880; 99283; 99284; J1200; J1885; J2765

== ENCOUNTER 2019-04-24 19:48 | Emergency (ER) | payer OTHER ==
[~2019-04-24] VITALS: Ht 160 cm; Wt 77.3 kg
[~2019-04-24 19:48] MED LIST changes: +REGL10TA6 PO
[2019-04-24] MEDS ORDERED: METO10TA2 (19:56)
[2019-04-24] MEDS ORDERED: BANO25CA (19:56)
[2019-04-24] MEDS ORDERED: traMADol 50 MG TAB PO ONE (22:15)
--- NOTE | 2019-04-24 22:40 | REPVR ---
PROCEDURE INFORMATION: Exam: CT Head Without Contrast Exam date and time: 04/24/2019 10:23 PM Age: 23 years old Clinical indication: Pain; Headache; Additional info: WILLIAM TECHNIQUE: Imaging protocol: Computed tomography of the head without contrast. Radiation optimization: All CT scans at this facility use at least one of these dose optimization techniques: automated exposure control; mA and/or kV adjustment per patient size (includes targeted exams where dose is matched to clinical indication); or iterative reconstruction. COMPARISON: CT Head without contrast 04/23/2019 1:22 AM FINDINGS: Brain: Normal. No hemorrhage. Unremarkable white matter. No mass effect. Ventricles: Normal. No ventriculomegaly. Bones/joints: Unremarkable. No acute fracture. Sinuses: Visualized sinuses are unremarkable. No fluid levels. Mastoid air cells: Visualized mastoid air cells are well aerated. Soft tissues: Unremarkable. IMPRESSION: No acute intracranial abnormality. Electronically signed by: Saeed Brennan On 04/24/2019 22:40:03 PM
[2019-04-24] MEDS ORDERED: PROPOFOL 200 MG/20 ML VIAL As Ordered ONE ×2 (23:33→23:53)
[2019-04-25 00:06] VITALS: O2SAT 100
--- NOTE | 2019-04-25 00:10 | ED PDOC ---
Post-Departure Follow-Up CSF OPENING PRESSURE WAS 16 ML H2O STEPHANY MEJÍA DO Apr 25, 2019 00:10
[2019-04-25 00:30] VITALS: BP 135/79
[2019-04-25] MEDS ORDERED: PROPOFOL 200 MG/20 ML VIAL IV ONE (00:45)
== END 2019-04-25 00:47 | disposition home or self-care (01) ==
LOC: M ED 19:48
DX: R51 Headache (principal); H47.10 Unspecified papilledema; Z79.2 Long term (current) use of antibiotics; Z79.899 Other long term (current) drug therapy; Z79.3 Long term (current) use of hormonal contraceptives

== ENCOUNTER 2019-05-02 06:37 | Emergency (ER) | payer OTHER ==
[~2019-05-02] VITALS: Ht 157.5 cm; Wt 76.4 kg
[~2019-05-02 06:37] MED LIST changes: +BANO25CA; +METO10TA2
[2019-05-02] MEDS ORDERED: ACET500C10 (06:45)
[2019-05-02] MEDS ORDERED: HYDR-3713 (06:45)
[2019-05-02] MEDS ORDERED: diphenhydrAMINE 50 MG CAP PO ONE (07:45)
[2019-05-02] MEDS ORDERED: IBUPROFEN 600 MG TAB PO ONE (07:45)
[2019-05-02] MEDS ORDERED: IBUPROFEN 800 MG TAB As Ordered ONE (08:04)
[2019-05-02 08:18] LABS: BASO # 0.1 10^3/uL (0.0-0.2); BASO % 0.9 % (0.0-1.0); EOS # 0.4 10^3/uL (0.0-0.5); EOS % 4.8 % (0.0-3.0); HEMATOCRIT 41.4 % (36.0-47.0); HEMOGLOBIN 13.9 g/dl (12.0-15.5); LYMPH # 2.5 10^3/uL (1.5-5.0); LYMPH % 32.9 % (24.0-44.0); MEAN CORPUSCULAR HEMOGLOBIN 23.7 pg (27.0-33.0); MEAN CORPUSCULAR HGB CONC 33.6 g/dl (32.0-36.5); MEAN CORPUSCULAR VOLUME 70.5 fl (80.0-96.0); MONO # 0.4 10^3/uL (0.0-0.8); MONO % 5.2 % (0.0-5.0); NEUTROPHILS # 4.2 10^3/uL (1.5-8.5); NEUTROPHILS % 55.9 % (36.0-66.0); PLATELET COUNT, AUTOMATED 335 10^3/uL (150-450); RED BLOOD COUNT 5.87 10^6/uL (4.00-5.40); WHITE BLOOD COUNT 7.5 10^3/uL (4.0-10.0)
[2019-05-02 08:45] LABS: ALBUMIN 3.7 GM/DL (3.2-5.2); ALT/SGPT 10 U/L (12-78); BILIRUBIN,TOTAL 0.3 MG/DL (0.2-1.0); BLOOD UREA NITROGEN 9 MG/DL (7-18); CALCIUM LEVEL 8.9 MG/DL (8.5-10.1); CARBON DIOXIDE LEVEL 21 MEQ/L (21-32); CHLORIDE LEVEL 112 MEQ/L (98-107); CREATININE FOR GFR 0.78 MG/DL (0.55-1.30); GLOMERULAR FILTRATION RATE > 60.0 (>60); GLUCOSE, FASTING 89 MG/DL (70-100); POTASSIUM SERUM 3.5 MEQ/L (3.5-5.1); SODIUM LEVEL 141 MEQ/L (136-145)
[2019-05-02] MEDS ORDERED: ACET250T2 PO (09:00)
[2019-05-02] MEDS ORDERED: K-TA10TA2 PO (09:00)
[2019-05-02] MEDS ORDERED: IBUP-1114 PO (09:04)
[2019-05-02 09:15] VITALS: BP 117/77
== END 2019-05-02 09:56 | disposition home or self-care (01) ==
LOC: M ED 06:37
DX: R51 Headache (principal); N80.9 Endometriosis, unspecified; H47.10 Unspecified papilledema; Z88.6 Allergy status to analgesic agent; Z79.899 Other long term (current) drug therapy

== ENCOUNTER → 2019-07-01 | Outpatient (CLI) | payer OTHER ==
[~2019-07-01] MED LIST changes: +ACET250T2 PO; +ACET500C10; +HYDR-3713; +IBUP-1114 PO; +K-TA10TA2 PO; +LIQUID POLIBAR PLUS 105% w/v 1900ML BTL As Ordered ONE
--- NOTE | 2019-07-01 16:32 | REP ---
Examination Requested: Barium and Air contrast Reason For Exam: Images of the intestine The procedure was performed by LYNETTE Arora, under the direct supervision of Dr. Salmon. The images were reviewed with Dr. Salmon. The talent management manager film shows no organomegaly, or pathological masses. The intestinal gas pattern is unremarkable. Liquid barium and air were instilled into the colon and retrograde flow of the barium air mixture. The colon is normal in position and contour. Postradiation bulla is unremarkable throughout. There is free flow of contrast to the cecum. There is reflux into the terminal ileum. The appendix is visualized. The colonic mucosal pattern is normal in course and caliber. There is no annular constricting lesion identified. There are no polypoid masses identified. Impression: 1. Unremarkable barium enema 0.7 minutes of fluoroscopy time was utilized for this procedure. Some fluoroscopic images are performed with last image hold technology. These images require no additional radiation. Reviewed by LYNETTE Edgar 07/01/2019 04:16 P Electronically Signed by Pravin Salmon MD 07/01/2019 04:23 P
== END ==
LOC: M RAD 07:30
PROVIDERS: ATTEND Surgery
DX: N80.5 Endometriosis of intestine (principal)

== ENCOUNTER → 2020-04-30 | Outpatient (CLI) | payer SELFPAY ==
[~2020-04-30] MED LIST changes: -LIQUID POLIBAR PLUS 105% w/v 1900ML BTL As Ordered ONE
== END ==
LOC: M LABSMTC 10:01
PROVIDERS: ATTEND Pediatrics
DX: Z20.822 Contact with and (suspected) exposure to COVID-19 (principal)